=== PATIENT | female | born 2000 | race African-American/Black ===

== ENCOUNTER 2021-06-11 21:25 | Emergency (ER) | payer BC, OTHER ==
[2021-06-11 21:53] VITALS: BP 121/68; PULSE 100; TEMP 99; BMI 20.5
[2021-06-11 22:06] LABS: HCG,QUALITATIVE URINE Negative
[2021-06-11 22:30] LABS: ALBUMIN 4.2 g/dl (3.4-5.0); BILIRUBIN,TOTAL 0.3 mg/dl (0.2-1); CALCIUM 9.1 mg/dl (8.5-10); CREATININE 0.7 mg/dl (0.55-1.3); TOT PROT 7.3 g/dl (6.4-8.2)
[2021-06-11 23:52] LABS: BASO % 0.4 % (0-2.0); EOS % 1.6 % (0-4.5); HEMATOCRIT 40.9 % (32.4-45.2); LYMPH % 29.6 % (8-40); MCH 30.1 pg (25.7-33.7); MCHC 34.1 g/dl (32.0-36.0); MEAN CELL VOLUME 88.2 fl (80-96); MEAN PLT VOLUME 8.5 fl (7.5-11.1); MONO % 6.5 % (3.8-10.2); NEUT % 61.9 % (42.8-82.8); PLATELET COUNT 268 10^3/uL (134-434); RBC 4.64 M/mm3 (3.60-5.2); RDW 13.1 % (11.6-15.6); WHITE BLOOD COUNT 7.4 K/mm3 (4.0-10.0)
[2021-06-12] LABS: METHADONE, UR NEGATIVE (NEGATIVE); OPIATES, URI NEGATIVE (NEGATIVE); PHENCYCLIDINE,URINE NEGATIVE (NEGATIVE); URINE BENZODIAZEPINES NEGATIVE (NEGATIVE)
[2021-06-12 00:18] LABS: COCAINE, UR NEGATIVE (NEGATIVE); URINE AMPHETAMINES NEGATIVE (NEGATIVE); URINE BARBITURATES POSITIVE (NEGATIVE)
== END 2021-06-11 23:57 | disposition home or self-care (01) ==
LOC: FER 21:25
DX: R41.0 Disorientation, unspecified (principal)
CPT/HCPCS: 36415; 70450-TC; 80053; 80307; 81003; 83735; 84703; 85025; 99284-25